=== PATIENT | male | born 1955 | race Caucasian/White ===

== ENCOUNTER 2019-09-21 09:11 | Day surgery (SDC) | payer OTHER ==
[~2019-09-21] VITALS: Ht 177.8 cm; Wt 105.0 kg
[~2019-09-21 09:11] MED LIST: AMLO10 PO; B-COMPLEX WITH1 EAC2 PO; Cinnamon500 MG PO; LISI20 PO; VITAMIN D34000 UNIT
--- NOTE | 2019-09-21 09:48 | NUR ---
09/21/19 0948 Florina Curtis 1 TRY RIGHT WRIST BLEW 2 TRY OFF UPPER ARM RIGHT
== END 2019-09-21 11:20 | disposition home or self-care (01) ==
LOC: ORSCSDS 09:11
PROVIDERS: Internal Medicine Gastroenterology
PROC: 0DBK8ZX Excision of Ascending Colon, Via Natural or Artificial Opening Endoscopic, Diagnostic (ICD-10-PCS; principal; 2019-09-21 10:30)
DX: Z12.11 Encounter for screening for malignant neoplasm of colon (principal); Z86.010 Personal history of colon polyps; D12.2 Benign neoplasm of ascending colon; G47.33 Obstructive sleep apnea (adult) (pediatric); I10 Essential (primary) hypertension; K21.9 Gastro-esophageal reflux disease without esophagitis; E78.5 Hyperlipidemia, unspecified; Z79.899 Other long term (current) drug therapy; K57.30 Diverticulosis of large intestine without perforation or abscess without bleeding; E66.01 Morbid (severe) obesity due to excess calories; Z68.36 Body mass index [BMI] 36.0-36.9, adult
CPT/HCPCS: 88305; J2001; J2704; J7120

== ENCOUNTER 2020-10-14 10:23 | Day surgery (SDC) | payer OTHER ==
[~2020-10-14] VITALS: Ht 177.8 cm; Wt 109.8 kg
[~2020-10-14 10:23] MED LIST changes: +ATOR80 PO
--- NOTE | 2020-10-14 10:39 | NUR ---
10/14/20 1039 Erica Dubois BLOOD DRAWN AND ANTICOAG IS ADDED, DELIVERED TO OR TO BE SPUN. FOR PRP
[2020-10-14] MEDS ORDERED: ASPI81CH PO (10:55)
--- NOTE | 2020-10-14 11:56 | NUR ---
10/14/20 1156 Etelvina Ivy 1CC EPI ADDED INTO FIRST 3 BAGS OF LR
== END 2020-10-14 13:50 | disposition home or self-care (01) ==
LOC: ORSCSDS 10:23
PROVIDERS: Orthopaedic Surgery
PROC: 0LQ24ZZ Repair Left Shoulder Tendon, Percutaneous Endoscopic Approach (ICD-10-PCS; principal; 2020-10-14 11:45)
PROC: 0LS44ZZ Reposition Left Upper Arm Tendon, Percutaneous Endoscopic Approach (ICD-10-PCS; principal; 2020-10-14 11:45)
PROC: 0RNK4ZZ Release Left Shoulder Joint, Percutaneous Endoscopic Approach (ICD-10-PCS; principal; 2020-10-14 11:45)
DX: M75.122 Complete rotator cuff tear or rupture of left shoulder, not specified as traumatic (principal); M75.22 Bicipital tendinitis, left shoulder; M75.52 Bursitis of left shoulder; I10 Essential (primary) hypertension; G47.33 Obstructive sleep apnea (adult) (pediatric); Z79.899 Other long term (current) drug therapy; E66.9 Obesity, unspecified; Z68.34 Body mass index [BMI] 34.0-34.9, adult; Z79.82 Long term (current) use of aspirin
CPT/HCPCS: C1713; J0171; J0690; J1100; J1885; J2001; J2250; J2370; J2405; J2704; J2710; J3010; J7120

== ENCOUNTER 2024-08-06 06:11 | Day surgery (SDC) | payer OTHER ==
[~2024-08-06] VITALS: Ht 177.8 cm; Wt 108.5 kg
[2024-08-06] VITALS (9 sets, daily range): BP systolic 114–162; BP diastolic 71–101
[~2024-08-06 06:11] MED LIST changes: +ALPR1 PO; +ASPI81CH PO; +C COMPLEX1000 M1 PO; +Crestor40 MG PO; +EZET10 PO; +FISH OIL 1,0001 EA10 PO; +FLAX PO; +NIAC500 PO; +OMEP20ER PO; +SILD50TA PO; +TESTOSTERONE75 G1 TD; +Vitamin B-12100 MCG PO; +ZINC15 PO
[2024-08-06] MEDS ORDERED: Lactated Ringer's 1,000 ML IV SCH (06:25)
[2024-08-06] MEDS ORDERED: CeFAZolin Sodium 2,000 MG in NS 100 ML IV SCH (06:25)
--- NOTE | 2024-08-06 07:00 | NUR ---
Ambulatory in Day Surgery History, Chart, Medications and Allergies reviewed before start of procedure.Lungs clear T/O to Auscultation. Patient confirms NPO status and agrees with scheduled surgery. Patient reports completing Chlorhexadine shower X2 prior to admission to hospital.Surgical site prepped with 2% Chlorhexidine cloth wipe. Patient States Post-Procedure ride home has been arranged.
[2024-08-06] MEDS ORDERED: Bupivacaine 0.5% HCl 5 MG/ML 30MLVIAL ONE (07:04)
[2024-08-06] MEDS ORDERED: propofoL 20 ML IV ONE (07:23)
[2024-08-06] MEDS ORDERED: FentaNYL Citrate 50 MCG/ML 2 ML Injection ONE (07:23)
[2024-08-06] MEDS ORDERED: Rocuronium Bromide 10 MG/ML 5ML Injection IV ONE (07:23)
[2024-08-06] MEDS ORDERED: Sugammadex Sodium 200 MG/2ML SDV (100 MG/ML) ONE (08:01)
[2024-08-06] MEDS ORDERED: Dexamethasone Sod Phos 10 MG/ML 1ML VIAL ONE (08:12)
[2024-08-06] MEDS ORDERED: Ondansetron HCl 2 MG / ML 2ML Vial ONE (08:12)
[2024-08-06] MEDS ORDERED: Ketorolac Tromethamine 30mg Vial ONE (08:12)
[2024-08-06] MEDS ORDERED: HYDROcodone 5-APAP 325 TAB PO PRN (09:00)
== END 2024-08-06 10:08 | disposition home or self-care (01) ==
LOC: ORSCMMR 06:11 → ORD 07:30 → ORSCMMR 10:08
PROVIDERS: Surgery
PROC: 0WUF0JZ Supplement Abdominal Wall with Synthetic Substitute, Open Approach (ICD-10-PCS; principal; 2024-08-06 07:30)
DX: K42.9 Umbilical hernia without obstruction or gangrene (principal); E78.5 Hyperlipidemia, unspecified; I10 Essential (primary) hypertension; I25.10 Atherosclerotic heart disease of native coronary artery without angina pectoris; G47.33 Obstructive sleep apnea (adult) (pediatric); E66.9 Obesity, unspecified; Z68.34 Body mass index [BMI] 34.0-34.9, adult; Z87.891 Personal history of nicotine dependence; Z79.899 Other long term (current) drug therapy
CPT/HCPCS: A9270; C1781; J0690; J1100; J1885; J2405; J2704; J3010; J7120

== ENCOUNTER 2024-11-22 08:35 | Day surgery (SDC) | payer OTHER ==
[2024-11-22] VITALS (13 sets, daily range): BP systolic 94–145; BP diastolic 52–96
[~2024-11-22] VITALS: Ht 174 cm; Wt 109.6 kg
[~2024-11-22 08:35] MED LIST changes: +Acetaminophen 500 MG Tab PO SCH; +Bupivacaine 0.5% Inj 10 ML Vial ONE; +CeFAZolin Sodium 2,000 MG in NS 100 ML IV SCH; +Chlorhexidine Mouth Care 15 ML UDC MT SCH; +Lactated Ringer's 1,000 ML IV SCH; +OxyCODONE HCL 10 MG TABCR PO SCH; +Ropivacaine 0.5% HCl/Pf 123.125 MG,EPINEPHrine HCL 0.25 MG,Ketorolac Tromethamine 15 MG... INFIL SCH; +Tranexamic Acid 1,000 MG in NS 100 ML IV SCH; +propofoL 100 ML IV ONE
[2024-11-22] MEDS ORDERED: DiphenhydrAMINE HCL 25 MG Cap PO PRN (09:05)
[2024-11-22] MEDS ORDERED: ALPRAZolam 1 MG Tab PO PRN (09:05)
[2024-11-22] MEDS ORDERED: Promethazine HCl 25 MG Tab PO PRN (09:10)
[2024-11-22] MEDS ORDERED: Ondansetron HCl 2 MG / ML 2ML Vial IV PRN (09:10)
[2024-11-22] MEDS ORDERED: OxyCODONE HCL 5 MG TAB PO PRN ×2 (09:10)
[2024-11-22] MEDS ORDERED: Bisacodyl 10 MG Supp PR PRN (09:10)
[2024-11-22] MEDS ORDERED: Metoclopramide HCl 5MG / ML 2ML Vial IV PRN (09:15)
[2024-11-22] MEDS ORDERED: FLU VACC TS2024-25(6MOS UP)/PF 45 MCG/0.5 ML SYRINGE IM PRN (09:15)
[2024-11-22] MEDS ORDERED: Magnesium Hydroxide Conc 10 ML UDC PO PRN (09:15)
[2024-11-22] MEDS ORDERED: HYDROmorphone HCl/Pf 1MG SYR IV PRN (09:15)
[2024-11-22] MEDS ORDERED: Lactated Ringer's 1,000 ML IV SCH (09:15)
[2024-11-22] MEDS ORDERED: FentaNYL Citrate 50 MCG/ML 2 ML Injection ONE (09:55)
--- NOTE | 2024-11-22 10:06 | NUR ---
History, Chart, Medications and Allergies reviewed before start of procedure. Patient up to Ambulate independently. Gait steady. Pre-Op teaching done. Pt verbalizes understanding. Patient confirms NPO status and agrees with scheduled surgery. Patient reports completing Chlorhexadine shower X6 prior to admission to hospital. Surgical site prepped with 2% Chlorhexidine cloth wipe. Patient States Post-Procedure ride home has been arranged.
[2024-11-22] MEDS ORDERED: Dexamethasone Sod Phos 10 MG/ML 1ML VIAL ONE (10:09)
[2024-11-22] MEDS ORDERED: Ketorolac Tromethamine 30mg Vial ONE (10:09)
[2024-11-22] MEDS ORDERED: Ondansetron HCl 2 MG / ML 2ML Vial ONE (10:09)
[2024-11-22] MEDS ORDERED: Phenylephrine HCl 100 MCG/ML-NS 10MLSYR (1MG/10ML) ONE (10:19)
[2024-11-22] MEDS ORDERED: Ketorolac Tromethamine 15mg Vial IV SCH (12:00)
[2024-11-22] MEDS ORDERED: Acetaminophen 500 MG Tab PO SCH (16:00)
--- NOTE | 2024-11-22 18:10 | NUR ---
SHIFT SUMMARY POD0 L TKA, SPINAL WORE OFF AND PATIENT DID PT, VOIDING AND TOELRATING FOOD. UP TO CHAIR 1 ASSIST. ICE, SCDS AND TEDS ON. VSS, USES CALL LIGHT.
[2024-11-22] MEDS ORDERED: CeFAZolin Sodium 2,000 MG in NS 100 ML IV SCH (18:15)
[2024-11-22] MEDS ORDERED: Docusate Sodium 100 MG Cap PO SCH (21:00)
--- NOTE | 2024-11-23 04:54 | NUR ---
SHIFT SUMMARY. WILIAN WAS ALERT AND FULLY ORIENTED ON ASSESMENT. PT AMBULATING WELL AND VOIDING APPROPRIATELY. PAIN WELL MANAGED AT THIS TIME. POD1 FOR ELECTIVE LTK. DRESSING C/D/I, CIRCULATION AND SENSATION TO DISTAL EXTREMETIES INTACT. NO ACUTE EVENTS, NO NOTED CHANGES TO PT CONDITION.
[2024-11-23 05:09] LABS: BASOPHILS ABSOLUTE AUTO 0.01 K/mm3 (0.00-0.23); BASOPHILS PERCENT AUTO 0 % (0-2); EOSINOPHILS PERCENT AUTO 0 % (0-6); Hematocrit 37.5 % (37.0-53.0); Hemoglobin 12.9 g/dL (13.5-17.5); IMMATURE GRAN ABSOLUTE AUTO 0.03 K/mm3 (0.00-0.10); IMMATURE GRAN PERCENT AUTO 0 % (0-1); LYMPHOCYTES ABSOLUTE AUTO 0.95 K/mm3 (0.84-5.20); LYMPHOCYTES PERCENT AUTO 8 % (21-46); MONOCYTES ABSOLUTE AUTO 0.83 K/mm3 (0.16-1.47); MONOCYTES PERCENT AUTO 7 % (4-13); Mean Corpuscular HGB 30.6 pg (26.0-34.0); Mean Corpuscular HGB Conc 34.4 g/dL (31.5-36.5); Mean Corpuscular Volume 89 fL (80-100); Mean Platelet Volume 9.8 fL (9.1-12.4); NEUTROPHILS ABSOLUTE AUTO 10.85 K/mm3 (1.96-9.15); NEUTROPHILS PERCENT AUTO 86 % (41-73); Platelet Count 243 K/mm3 (150-400); RDW Coefficient Variation 13.1 % (11.7-14.2); RDW Standard Deviation 42.6 fL (35.1-46.3); Red Blood Cell Count 4.22 M/mm3 (4.30-5.90); White Blood Cell Count 12.67 K/mm3 (4.00-11.30)
[2024-11-23 05:15] VITALS: BP 123/76
[2024-11-23 05:33] LABS: Bun/Creatinine Ratio 21.8 (12.0-20.0); Calcium, Blood 8.6 mg/dL (8.5-10.1); Creatinine, Blood 1.19 mg/dL (0.60-1.20); Potassium, Blood 5.1 mmol/L (3.5-5.5)
[2024-11-23 07:25] VITALS: BP 131/83
[2024-11-23] MEDS ORDERED: Aspirin 81 MG Chew PO SCH (09:00)
[2024-11-23] MEDS ORDERED: AmLODIPine Besylate 5 MG Tab PO SCH (09:00)
[2024-11-23] MEDS ORDERED: Lisinopril 20 MG Tab PO SCH (09:00)
[2024-11-23] MEDS ORDERED: Ezetimibe 10 MG Tab PO SCH (09:00)
--- NOTE | 2024-11-23 10:57 | NUR ---
DISCHARGE: PT IS VOIDING AND AMBULATING, VSS, AND A/O. SURGICAL SITE WNL AND SENSATION INTACT. LUNGS ARE CLEAR BILATERALLY. PT WORKED WITH THERAPY AND WAS CLEARED THIS MORNING. DC PACKET PRINTED AND PT EDUCATED. IV DC'D WNL , TIP INTACT. PT LEFT UNIT VIA WHEELCHAIR WITH NAVYA JACOBSEN AT ABOUT 1030.
== END 2024-11-23 10:21 | disposition home or self-care (01) ==
LOC: ORSCMMR 08:35 → ORD 10:15 → SURS 12:53 → ORSCMMR 12:53 → SURS 11-23 10:21
PROVIDERS: Orthopaedic Surgery
PROC: 0SRD0JA Replacement of Left Knee Joint with Synthetic Substitute, Uncemented, Open Approach (ICD-10-PCS; principal; 2024-11-22 10:15)
DX: M17.12 Unilateral primary osteoarthritis, left knee (principal); I10 Essential (primary) hypertension; I25.10 Atherosclerotic heart disease of native coronary artery without angina pectoris; G47.33 Obstructive sleep apnea (adult) (pediatric); Z87.891 Personal history of nicotine dependence; Z79.899 Other long term (current) drug therapy; Z79.82 Long term (current) use of aspirin; E66.9 Obesity, unspecified; Z68.36 Body mass index [BMI] 36.0-36.9, adult
CPT/HCPCS: 36415; 73560-LT; 80048; 82947; 85025; 97110; 97116; 97162; A9270; C1713; C1776; J0171; J0690; J0735; J1100; J1885; J2371; J2405; J2704; J2795; J3010; J7120

== ENCOUNTER 2025-01-31 06:14 | Day surgery (SDC) | payer OTHER ==
[~2025-01-31] VITALS: Ht 177.8 cm; Wt 106.8 kg
[~2025-01-31 06:14] MED LIST changes: -Acetaminophen 500 MG Tab PO SCH; +Aspir 8181 MG PO; -Bupivacaine 0.5% Inj 10 ML Vial ONE; -CeFAZolin Sodium 2,000 MG in NS 100 ML IV SCH; -Chlorhexidine Mouth Care 15 ML UDC MT SCH; -Lactated Ringer's 1,000 ML IV SCH; -OxyCODONE HCL 10 MG TABCR PO SCH; -Ropivacaine 0.5% HCl/Pf 123.125 MG,EPINEPHrine HCL 0.25 MG,Ketorolac Tromethamine 15 MG... INFIL SCH; -Tranexamic Acid 1,000 MG in NS 100 ML IV SCH; -propofoL 100 ML IV ONE
[2025-01-31] MEDS ORDERED: Lactated Ringer's 1,000 ML IV SCH (06:20)
[2025-01-31 06:46] VITALS: BP 127/81
--- NOTE | 2025-01-31 06:53 | NUR ---
History, Chart, Medications and Allergies reviewed before start of procedure. Lungs clear T/O to Auscultation. Patient confirms NPO status and agrees with scheduled surgery. Patient states colon prep results clear. Pre-Op teaching done. Pt verbalizes understanding.
--- NOTE | 2025-01-31 07:39 | NUR ---
01/31/25 0739 Kathy Waters 0734- History, Chart, Medications and Allergies reviewed before start of procedure.MONITOR INTACT WITH CONTINUOUS PULSE OXIMETRY, CONTINUOUS END TITAL CO2, 3-LEAD EKG AND INTERMITTENT BLOOD PRESSURE.3-LEAD EKG REVIEWED WITH PHYSICIAN PRIOR TO START OF PROCEDURE.O2 VIA POM INTACT THROUGHOUT SEDATION/PROCEDURE.DR. HARRIS PROVIDING MAC-SEE ANESTHESIA RECORD.
[2025-01-31 07:57] VITALS: BP 110/77
[2025-01-31 08:00] VITALS: BP 105/72
[2025-01-31 08:09] VITALS: BP 113/77
--- NOTE | 2025-01-31 08:15 | NUR ---
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
[2025-01-31] MEDS ORDERED: Propofol 10mg/ml 20 ml Vial (Procedural) IV ONE (14:57)
== END 2025-01-31 23:00 | disposition home or self-care (01) ==
LOC: ORSCMMR 06:14 → ORD 07:30 → ORSCMMR 07:30
PROVIDERS: Internal Medicine Gastroenterology
PROC: 0DBM8ZX Excision of Descending Colon, Via Natural or Artificial Opening Endoscopic, Diagnostic (ICD-10-PCS; principal; 2025-01-31 07:30)
DX: Z12.11 Encounter for screening for malignant neoplasm of colon (principal); Z86.0100 Personal history of colon polyps, unspecified; K63.5 Polyp of colon; I25.10 Atherosclerotic heart disease of native coronary artery without angina pectoris; I10 Essential (primary) hypertension; G47.33 Obstructive sleep apnea (adult) (pediatric); Z87.891 Personal history of nicotine dependence; Z79.899 Other long term (current) drug therapy; Z79.84 Long term (current) use of oral hypoglycemic drugs
CPT/HCPCS: 88305; J2704; J7120